=== PATIENT | female | born 1955 | race Caucasian/White ===

== ENCOUNTER 2019-01-28 08:52 | Inpatient (IN) | payer OTHER ==
[2019-01-20 12:37] VITALS: BMI 43.8
--- NOTE | 2019-01-28 08:03 | HP ---
Satellite [facility] - Chief Complaint Chief Complaint: left hip pain - Past Medical History Allergies/Adverse Reactions: Allergies Allergy/AdvReac Type Severity Reaction Status Date / Time gabapentin [From Neurontin] Allergy Severe Verified 01/20/19 12:07 cefaclor [From Ceclor] Allergy Intermediate Hives Verified 01/20/19 12:07 Penicillins Allergy Intermediate Hives Verified 01/20/19 12:07 meperidine HCl [From Demerol] AdvReac Severe HALLUCINATI Verified 01/20/19 12:06 ONS LIDOCAINE PATCH Allergy Intermediate Uncoded 06/21/15 18:01 Cardiovascular: Yes: CAD (s/p Stent in September 2012), HTN, Hyperlipdemia, [place] Pulmonary: Yes: Asthma, COPD Musculoskeletal: Yes: Chronic low back pain Endocrine: Yes: Other (Obesity) - Current Medications Current Medications: Home Medications Medication Instructions Recorded Carvedilol 12.5 mg PO BID 06/16/13 Clopidogrel Bisulfate [Plavix -] 75 mg PO DAILY 06/16/13 Losartan Potassium [Cozaar] 100 mg PO HS 06/16/13 Aspirin Coated [Ecotrin -] 81 mg PO DAILY 10/30/13 Rosuvastatin Calcium [Crestor] 20 mg PO HS 10/30/13 Cholecalciferol (Vitamin D3) 2,000 unit PO DAILY 06/21/15 [Vitamin D3] Spironolactone [Aldactone] 25 mg PO DAILY 06/21/15 Budesonide/Formeterol Fumarate 1 inh PO DAILY 01/20/19 [SYMBICORT 160/4.5mcg -] Diclofenac Sodium [Diclofenac 100 mg PO HS 01/20/19 Sodium ER] Ezetimibe 10 mg PO DAILY 01/20/19 Ferrous Sulfate [Feosol] 325 mg PO DAILY 01/20/19 Magnesium 200 mg PO DAILY 01/20/19 Tiotropium [place] [Spiriva] 1 inh PO DAILY 01/20/19 Ubidecarenone [Coq-10] 200 mg PO DAILY 01/20/19 Satellite Physical Exam - Physical Examination General Appearance: Well Nourished, Well Developed, Alert & Oriented x3 ENT: Clear Lung: Normal air movement Extremities: Other (left hip- +ttp ,decr rom ,nvi, xrays show grade 4 hip djd) Neurological: Intact, Alert, Oriented Satellite Impression/Plan - Impression/Plan Impression: left hip djd Operative Procedure: left lizzie thr Date to be Performed: 01/28/19
[2019-01-28] MEDS ORDERED: MIDAZOLAM HCL 2 MG/2 ML SINGLE DOSE VIAL ONE (09:09)
[2019-01-28] MEDS ORDERED: TRANEXAMIC ACID 1000 MG/10 ML VIAL IVPUSH ONE (09:14)
[2019-01-28] MEDS ORDERED: CELECOXIB 200 MG CAPSULE PO ONE (09:14)
[2019-01-28] MEDS ORDERED: CEFAZOLIN 3 GM in DEXTROSE 5%-WATER - 100 ML IVPB ONE (09:14)
[2019-01-28] MEDS ORDERED: ceFAZolin SODIUM 1 GM VIAL ONE ×3 (11:00→17:11)
[2019-01-28] MEDS ORDERED: ONDANSETRON 4 MG/2 ML VIAL IVPUSH PRN (11:24)
[2019-01-28] MEDS ORDERED: MAGNESIUM HYDROX 2400MG/30ML ORAL SUSPENSION 30 ML CUP PO PRN (11:24)
[2019-01-28] MEDS ORDERED: MAG HYDROX/AL HYDROX/SIMETH 30 ML UNIT-DOSE CUP PO PRN (11:24)
[2019-01-28] MEDS ORDERED: PROPOFOL 20 ML ONE (11:51)
[2019-01-28] MEDS ORDERED: TRANEXAMIC ACID 1000 MG/10 ML VIAL ONE (11:58)
--- NOTE | 2019-01-28 13:11 | OP ---
Operative Note - Note: Operative Date: 01/28/19 (joaquín) Pre-Operative Diagnosis: left hip djd Operation: left lizzie thr Post-Operative Diagnosis: Same as Pre-op Surgeon: Gabriel Campbell Asian Art Curator: Tom Mann Anesthesiologist/POKER MANAGER: Yobani Garnett Anesthesia: Spinal, Local Specimens Removed: femoral head Estimated Blood Loss (mls): 200
[2019-01-28] MEDS: LACTATED RINGERS SOLUTION 1,000 ML IV SCH (14:28)
[2019-01-28] MEDS ORDERED: DEXTROSE 5%-WATER 100 ML IVPB ONE (17:11)
[2019-01-28] MEDS: CEFAZOLIN 3 GM in DEXTROSE 5%-WATER 100 ML IVPB SCH (18:14)
[2019-01-28] MEDS: oxyCODONE HCL 5 MG TABLET PO PRN (18:15)
--- NOTE | 2019-01-28 19:03 | SPEC ---
DATE OF OPERATION: 01/28/2019 PREOPERATIVE DIAGNOSIS: Degenerative joint disease, left hip. POSTOPERATIVE DIAGNOSIS: Degenerative joint disease, left hip. PROCEDURE PERFORMED: Left total hip replacement with robotic-assisted navigation (MAKOplasty). SURGICAL ATTENDING: Gabriel Campbell MD BOOK PACKER: KIM Marquez ANESTHESIA: Regional and spinal. CLOSURE: A 48 press-fit Trident II acetabular shell, a number 3 Accolade II press-fit femoral stem, a +3-mm MDM head. Number 1 Vicryl fascia, 0 and 2-0 subcutaneous, 3-0 V-Loc for skin with skin glue, 4-0 undyed Vicryl for pin sites. ESTIMATED BLOOD LOSS: Approximately 150 mL. COMPLICATIONS: None. CONDITION: To the recovery room in stable condition. DESCRIPTION OF PROCEDURE: The patient was taken to the operating room on January 28, 2019. General and regional anesthesia was administered by the anesthesiologist. IV Kefzol and TXA were administered prophylactically prior to the case. The patient was placed in the lateral decubitus position will all prominences well-padded. The left hip area was prepped and draped in the usual sterile fashion. Using 3 small stab incisions over the iliac crest, 3 threaded pins were drilled in power fashion through the 2 tables of the crest. These pins were fastened and the navigation array for the Paulo navigation system. Next, a 12 to 15-cm curved longitudinal incision over the posterolateral aspect of the greater trochanter was incised. Hemostasis was achieved with Bovie cautery. Sharp dissection was carried down to level of the fascia. The fascia was opened the entire length of the incision, spreading the fibers of the gluteus chastity in the direction of origin. A Charnley retractor was placed in this layer. Care was taken not to impale the sciatic nerve. The short external rotators were detached off the insertion of the greater trochanter and peeled off the capsule. A posterior capsulotomy was then performed. A check point was malleted into the greater trochanter and a point on the inferior pole of the patella was obtained as well. These 2 points were used to assess the preoperative offset and limb lengths of the hip. The hip was then dislocated. The femoral neck was then osteotomized down to the appropriate level as directed by the navigation device. Anterior and posterior retractors were placed, exposing the acetabulum. A circumferential labral excision was performed. A check point was malleted into the acetabulum as well. Multiple sites inside the acetabulum and around the rim were utilized to register the acetabulum with the navigation device. An excellent registration of less than 0.5 mm was obtained. The hip was then reamed with the appropriate reamer down to the appropriate depth, with the appropriate orientation and version as assessed on our preoperative plan for this patient. The reamer was removed and the acetabulum was inspected to have good bleeding surfaces throughout. The real acetabular cup was then malleted down into place, with the holes in the appropriate position, until an excellent fixation was obtained. No screws were necessary. The navigation device ensured appropriate orientation and version, with the depth as predetermined. The appropriate liner was then clipped into place. Attention was directed to the femur. The proximal femur was prepared by use a box chisel, a canal finder and serial broaches until the broach achieved excellent rigidity in the proximal femur with the appropriate version being applied. A calcar planer was used to smooth off the calcar flush with the trial components. A trial reduction with the appropriate head was done, and the hip was reduced. The hip was taken through a range of motion from full extension with external rotation to marked flexion and was stable at 90 degrees of flexion. It was stable to marked abduction and internal rotation, with a positive hang test and negative telescoping. Limb lengths were ascertained visually as well as with the navigation device to be within the targeted range for this patient. The trial component was removed. The real component was then malleted into place. The head was cold welded to the trunnion, and the hip was reduced. Range of motion, stability and limb lengths were as described in the trial component. Then the hip was pulse antibiotic irrigated. Vancomycin powder was placed in the hip joint. The capsule was closed. The fascia was then closed as well using number 1 Vicryl interrupted suture, 0 and 2-0 subcutaneous, and 3-0 V-Loc for the skin. 4-0 undyed Vicryl was used to close the pin sites after the pins were removed. All check points were also removed. Sterile Aquacel dressing was applied. The patient was awakened from anesthesia and transferred into the supine position. Bilateral SCDs and an abduction pillow were placed. X-rays revealed excellent position of the components. The patient was transferred to the recovery room in stable condition, with no complications. Estimated blood loss was less than 100 mL. Manolo [id number]
[2019-01-28] MEDS ORDERED: traMADol HCL 50 MG TABLET PO PRN (20:50)
[2019-01-28] MEDS ORDERED: KETOROLAC TROMETHAMINE 30 MG/1 ML VIAL IVPUSH ONE (20:50)
[2019-01-28] MEDS: LOSARTAN POTASSIUM 50 MG TABLET (FP) PO SCH (21:06)
[2019-01-28] MEDS: CARVEDILOL 12.5 MG TABLET (FP) PO SCH (21:06)
[2019-01-28] MEDS: ROSUVASTATIN CA 20 MG TABLET (FP) PO SCH (21:07)
[2019-01-28] MEDS: SENNOSIDES/DOCUSATE COMBO (SENNA PLUS) TABLET (UD) PO SCH (21:07)
[2019-01-28] MEDS ORDERED: PATIENT'S OWN MEDICATION (NON-FORMULARY) (Losartan Potassium [Cozaar] 100 MG) PO SCH (22:00)
[2019-01-29] MEDS: ACETAMINOPHEN 1000 MG/100 ML VIAL (NON FORMULARY) IVPB PRN ×2 (01:23→10:27)
[2019-01-29] MEDS ORDERED: ceFAZolin SODIUM 1 GM VIAL ONE (03:10)
[2019-01-29] MEDS ORDERED: DEXTROSE 5%-WATER 100 ML IVPB ONE (03:10)
[2019-01-29] MEDS: CEFAZOLIN 3 GM in DEXTROSE 5%-WATER 100 ML IVPB SCH (03:13)
[2019-01-29] MEDS: oxyCODONE HCL 5 MG TABLET PO PRN ×6 (06:29→23:35)
[2019-01-29 07:59] LABS: HEMATOCRIT 39.4 % (32.4-45.2); MCH 31.6 pg (25.7-33.7); MCHC 33.1 g/dl (32.0-36.0); MEAN CELL VOLUME 95.3 fl (80-96); MEAN PLT VOLUME 8.6 fl (7.5-11.1); PLATELET COUNT 181 K/MM3 (134-434); RBC 4.13 M/mm3 (3.60-5.2); RDW 13.4 % (11.6-15.6)
[2019-01-29] MEDS: LACTATED RINGERS SOLUTION 1,000 ML IV SCH (08:09)
[2019-01-29] MEDS ORDERED: oxyCODONE HCL 10 MG SUSTAINED ACTING TABLET PO PRN (08:19)
--- NOTE | 2019-01-29 09:08 | PN ---
Progress Note (short form) - Note Progress Note: ANESTHESIA POSTOP 63 yo female POD#1 s/p YASMEEN, Spinal, PNB Patient sleeping in chair. Pain adequately controlled, tolerating PO VSS, Afebrile Continue current care. Encouraged IS and PT. No anesthetic complications.
[2019-01-29] MEDS ORDERED: PT OWN MED DRAWER 7, Y5N ONE (09:32)
--- NOTE | 2019-01-29 09:47 | PN ---
Progress Note (short form) - Note Progress Note: Ortho Pt seen and examined s/p left lizzie thr pod #1 Selected Entries 01/29/19 06:00 Temperature 99.0 F Pulse Rate 111 H Respiratory 20 Rate Blood Pressure 104/51 L Laboratory Tests 01/29/19 07:06 WBC 12.0 H Hgb 13.0 Hct 39.4 Plt Count 181 dressing c/d/i, calf soft, nt nvi a/p PT hip precautions dvt ppx pain control d/c home tomorrow if stable
[2019-01-29] MEDS: CARVEDILOL 12.5 MG TABLET (FP) PO SCH ×3 (09:48→22:00)
[2019-01-29] MEDS: ASPIRIN COATED 81 MG TABLET.EC PO SCH (09:48)
[2019-01-29] MEDS: SPIRONOLACTONE 25 MG TABLET (FP) PO SCH (09:49)
[2019-01-29] MEDS: MULTIVITAMINS (DAILY MVI) TABLET (FP) PO SCH (09:49)
[2019-01-29] MEDS: EZETIMIBE 10 MG TABLET (FP) PO SCH (09:49)
[2019-01-29] MEDS: FERROUS SO4 325 MG TABLET (FP) PO SCH (09:49)
[2019-01-29] MEDS: CLOPIDOGREL BISULFATE 75 MG TABLET (FP) PO SCH (09:50)
[2019-01-29] MEDS: PANTOPRAZOLE 40 MG TABLET (FP) PO SCH (09:50)
[2019-01-29] MEDS: SENNOSIDES/DOCUSATE COMBO (SENNA PLUS) TABLET (UD) PO SCH ×2 (09:56→21:19)
[2019-01-29] MEDS: BUDESONIDE/FORMETEROL FUMARATE 160/4.5 mcg INHALER IH SCH (09:56)
[2019-01-29] MEDS: TIOTROPIUM BROMIDE 2.5 MCG (SPIRIVA) RESPIMAT INHALER IH SCH (09:56)
[2019-01-29] MEDS ORDERED: PATIENT'S OWN MEDICATION (NON-FORMULARY) (Tiotropium Bromide [Spiriva] 1 INH) PO SCH (10:00)
[2019-01-29] MEDS ORDERED: oxyCODONE HCL 10 MG SUSTAINED ACTING TABLET PO SCH (10:00)
[2019-01-29] MEDS: ROSUVASTATIN CA 20 MG TABLET (FP) PO SCH (21:19)
[2019-01-29] MEDS: LOSARTAN POTASSIUM 50 MG TABLET (FP) PO SCH ×2 (21:19→22:00)
[2019-01-30] MEDS: oxyCODONE HCL 5 MG TABLET PO PRN ×2 (04:22→11:28)
[2019-01-30] MEDS: ACETAMINOPHEN 1000 MG/100 ML VIAL (NON FORMULARY) IVPB PRN (06:36)
[2019-01-30 07:52] LABS: HEMOGLOBIN 11.8 GM/dl (10.7-15.3); MCH 31.4 pg (25.7-33.7); MCHC 32.7 g/dl (32.0-36.0); MEAN CELL VOLUME 96.2 fl (80-96); MEAN PLT VOLUME 8.6 fl (7.5-11.1); PLATELET COUNT 165 K/MM3 (134-434); RBC 3.74 M/mm3 (3.60-5.2); RDW 13.4 % (11.6-15.6); WHITE BLOOD COUNT 13.7 K/mm3 (4.0-10.8)
--- NOTE | 2019-01-30 08:49 | DS ---
Physical Examination Vital Signs: Vital Signs Temperature 98.7 F 01/30/19 08:00 Pulse Rate 104 H 01/30/19 08:00 Respiratory Rate 19 01/30/19 08:00 Blood Pressure 78/34 L 01/30/19 08:00 O2 Sat by Pulse Oximetry (%) 95 01/30/19 08:00 Labs: CBC, BMP 01/30/19 07:17 Discharge Summary Problems reviewed: Yes Reason For Visit: OSTEOARTHRITIS Procedures: Principal: left thr Hospital Course: admitted for elective left lizzie thr, post-op per protocol, stable for d/c Condition: Good - Instructions Diet, Activity, Other Instructions: Post-op Instructions-Total Hip Replacement Call the office for a follow-up appointment in 1 week - [phone] Aspirin 325mg daily for 6 weeks. Pain medication was sent into your pharmacy. Apply Graduated Compression Stockings (TEDs) to both lower extremities- remove daily for hygiene ONLY Apply Sequential Compression Device (SCDs) to both Lower extremities remove for PT and hygiene ONLY Apply cold packs to affected area for 15 minutes every 2 hours. Physical Therapist will come to your home for the first 5 days. You will be set up with outpatient PT at your first post-operative visit. Patient may ambulate as tolerated-encourage self care (at least every 2-3 hours while awake) with walker or cane Maintain Aquacel (waterproof) dressing to operative wound (will be removed by surgeon at first office visit) Shower with Aquacel dressing in place-if Aquacel integrity compromised, remove and apply dry sterile dressing and notify Orthopedist. DO NOT SHOWER unless Orthopedists approves without Aquacel dressing CONTACT THE OFFICE FOR ANY CHANGE IN YOUR CONDITION (for example-fever greater than 102 degrees, excessive bleeding from operative site, purulent drainage, severe swelling or pain) GO TO THE EMERGENCY ROOM IF THERE IS A MEDICAL EMERGENCY Hip Precautions: * Keep a rolled towel under affected heel while in bed or chair (to keep knee in extension) * Dependent upon approach: * Posterior - do not cross legs; do not sit on low chairs or toilets. * If you have any questions, please do not hesitate to call the office - . Referrals: Gabriel Campbell MD [Staff Physician] - Disposition: VNS/HOME HEALTH CARE - Home Medications Comprehensive Discharge Medication List: Ambulatory Orders Carvedilol 12.5 mg PO BID 06/16/13 Clopidogrel Bisulfate [Plavix -] 75 mg PO DAILY 06/16/13 Losartan Potassium [Cozaar] 100 mg PO HS 06/16/13 Aspirin Coated [Ecotrin -] 81 mg PO DAILY 10/30/13 Rosuvastatin Calcium [Crestor] 20 mg PO HS 10/30/13 Cholecalciferol (Vitamin D3) [Vitamin D3] 2,000 unit PO DAILY 06/21/15 Spironolactone [Aldactone] 25 mg PO DAILY 06/21/15 Budesonide/Formeterol Fumarate [SYMBICORT 160/4.5mcg -] 1 inh PO DAILY 01/20/19 Diclofenac Sodium [Diclofenac Sodium ER] 100 mg PO HS 01/20/19 Ezetimibe 10 mg PO DAILY 01/20/19 Ferrous Sulfate [Feosol] 325 mg PO DAILY 01/20/19 Magnesium 200 mg PO DAILY 01/20/19 Tiotropium [place] [Spiriva] 1 inh PO DAILY 01/20/19 Ubidecarenone [Coq-10] 200 mg PO DAILY 01/20/19 Oxycodone HCl/Acetaminophen [Percocet 5-325 mg Tablet -] 1 - 2 tab PO Q6H #50 tab MDD 8 01/28/19 Tramadol HCl [Tramadol HCl ER] 100 mg PO DAILY 01/28/19
--- NOTE | 2019-01-30 08:49 | PN ---
Progress Note (short form) - Note Progress Note: Ortho Pt seen and examined s/p left lizzie thr pod #2. Pt given bolus for hypotension. Pt states that she has had low bp for her whole life. Pre-op BP also hypotensive. Denies dizziness, lethargy, CP, SOB. Selected Entries 01/30/19 08:00 Temperature 98.7 F Pulse Rate 104 H Respiratory 19 Rate Blood Pressure 78/34 L Laboratory Tests 01/30/19 07:17 WBC 13.7 H Hgb 11.8 Hct 36.0 Plt Count 165 dressing c/d/i, calf soft, nt nvi a/p recheck BP PT hip precautions dvt ppx pain control d/c home today if BP stabilized f/u in 1 week
[2019-01-30] MEDS: SPIRONOLACTONE 25 MG TABLET (FP) PO SCH (10:15)
[2019-01-30] MEDS: CARVEDILOL 12.5 MG TABLET (FP) PO SCH (10:15)
[2019-01-30] MEDS: PANTOPRAZOLE 40 MG TABLET (FP) PO SCH (10:16)
[2019-01-30] MEDS: CLOPIDOGREL BISULFATE 75 MG TABLET (FP) PO SCH (10:16)
[2019-01-30] MEDS: FERROUS SO4 325 MG TABLET (FP) PO SCH (10:16)
[2019-01-30] MEDS: ASPIRIN COATED 81 MG TABLET.EC PO SCH (10:16)
[2019-01-30] MEDS: SENNOSIDES/DOCUSATE COMBO (SENNA PLUS) TABLET (UD) PO SCH (10:16)
[2019-01-30] MEDS: EZETIMIBE 10 MG TABLET (FP) PO SCH (10:17)
[2019-01-30] MEDS: MULTIVITAMINS (DAILY MVI) TABLET (FP) PO SCH (10:17)
[2019-01-30] MEDS: TIOTROPIUM BROMIDE 2.5 MCG (SPIRIVA) RESPIMAT INHALER IH SCH (10:17)
[2019-01-30] MEDS: BUDESONIDE/FORMETEROL FUMARATE 160/4.5 mcg INHALER IH SCH (10:17)
[2019-01-30 14:28] VITALS: BP 89/49; PULSE 102; TEMP 98.2
--- NOTE | 2019-02-03 13:34 | PATH ---
Surgical Pathology Report Patient Name: JAYE HINES Med. Rec. #: [id number] /Age/Gender: 1955 (Age: 63) / F Account: [id number] Location: [facility] Taken: 01/28/2019 Received: 01/28/2019 Reported: 02/03/2019 Physicians: Gabriel Campbell M.D. Specimen(s) Received LEFT FEMORAL HEAD Clinical History Osteoarthritis left hip Final Diagnosis FEMORAL HEAD, LEFT, TOTAL HIP REPLACEMENT: DEGENERATIVE JOINT DISEASE. Electronically Signed Jaquelin Hickman M.D. Gross Description Received in formalin, labeled "left femoral head," is a 4.0 x 4.0 x 3.7 cm. femoral head with a 1.1 cm length portion of femoral neck attached. The margin of resection is smooth. There is a 3.5 cm greatest dimension area of eburnation present. The remaining articular surface is moore-yellow and diffusely granular. The underlying trabecular bone is yellow and hard. A quality assurance representative section is submitted in one cassette, following decalcification. 01/30/2019 [facility]
== END 2019-01-30 13:58 | disposition home health service (06) | DRG 470 ==
LOC: FM/S 08:52
PROVIDERS: ADMIT Orthopaedic Surgery; ATTEND Orthopaedic Surgery
PROC: 8E0W0CZ Robotic Assisted Procedure of Trunk Region, Open Approach (ICD-10-PCS; 2019-01-28)
PROC: 0SRB0JA Replacement of Left Hip Joint with Synthetic Substitute, Uncemented, Open Approach (ICD-10-PCS; principal; 2019-01-28 12:05)
DX: M16.12 Unilateral primary osteoarthritis, left hip (principal); Z68.41 Body mass index [BMI] 40.0-44.9, adult; I95.9 Hypotension, unspecified; I10 Essential (primary) hypertension; E78.5 Hyperlipidemia, unspecified; I25.10 Atherosclerotic heart disease of native coronary artery without angina pectoris; Z98.61 Coronary angioplasty status; E66.9 Obesity, unspecified
CPT/HCPCS: 36415; 73502-TC-LT-FY; 85027; 88305-TC; 88311-TC; 94760; 97116-GP; 97163-GP; J0131

== ENCOUNTER 2020-09-02 08:09 | Inpatient (IN) | payer OTHER ==
[2020-09-02 08:20] VITALS: BMI 56.6
[2020-09-02 09:37] LABS: BASO % 1.2 % (0-2.0); EOS % 0.8 % (0-4.5); HEMATOCRIT 43.1 % (32.4-45.2); HEMOGLOBIN 13.9 GM/dL (10.7-15.3); LYMPH % 14.1 % (8-40); MCH 31.6 pg (25.7-33.7); MCHC 32.3 g/dl (32.0-36.0); MEAN CELL VOLUME 97.7 fl (80-96); MEAN PLT VOLUME 8.4 fl (7.5-11.1); MONO % 6.4 % (3.8-10.2); NEUT % 77.5 % (42.8-82.8); PLATELET COUNT 215 10^3/uL (134-434); RBC 4.41 M/mm3 (3.60-5.2); RDW 14.7 % (11.6-15.6); WHITE BLOOD COUNT 9.5 K/mm3 (4.0-10.0)
[2020-09-02 09:38] LABS: EPI CELLS >36 /uL (0-25.1); HYALINE CASTS 6 /uL (0-3.1); PH,URINE 5.5 (5.0-8.0); URINE APPEARANCE CLOUDY; URINE BACTERIA 1693 /uL (0-1359); URINE BILIRUBIN NEGATIVE (NEGATIVE); URINE COLOR YELLOW; URINE GLUCOSE (UA) NEGATIVE (NEGATIVE); URINE KETONE NEGATIVE (NEGATIVE); URINE LEUK ESTERASE NEGATIVE (NEGATIVE); URINE NITRITE NEGATIVE (NEGATIVE); URINE PROTEIN 1+ (NEGATIVE); URINE UROBILINOGEN 0.2 mg/dL (0.2-1.0); URINE WBC 27 /uL (0-25.8)
[2020-09-02 09:52] LABS: URINE RBC 173.8 /uL (0-23.9)
[2020-09-02 09:58] LABS: CHLORIDE 94 mmol/L (98-107); SODIUM 140 mmol/L (136-145)
[2020-09-02 10:01] LABS: ALBUMIN 3.4 g/dl (3.4-5.0); BLOOD UREA NITROGEN 15.7 mg/dL (7-18); GLUCOSE,RANDOM 114 mg/dL (74-106)
[2020-09-02 10:04] LABS: SGOT/AST 74 U/L (15-37); SGPT/ALT 57 U/L (13-61)
[2020-09-02 10:05] LABS: CREATININE 0.5 mg/dL (0.55-1.3)
[2020-09-02 10:06] LABS: BILIRUBIN,TOTAL 0.5 mg/dL (0.2-1); TOT PROT 7.3 g/dl (6.4-8.2)
[2020-09-02 10:07] LABS: ALK PHOS 78 U/L (45-117); ANION GAP 1 MMOL/L (8-16); CO2 > 45 mmol/L (21-32)
[2020-09-02 11:35] LABS: CHLORIDE 95 mmol/L (98-107); SODIUM 142 mmol/L (136-145)
[2020-09-02 11:37] LABS: CALCIUM 9.7 mg/dL (8.5-10.1); GLUCOSE,RANDOM 121 mg/dL (74-106)
[2020-09-02 11:38] LABS: BLOOD UREA NITROGEN 16.4 mg/dL (7-18)
[2020-09-02 11:41] LABS: CREATININE 0.4 mg/dL (0.55-1.3)
[2020-09-02 11:43] LABS: ANION GAP 2 MMOL/L (8-16); CO2 > 45 mmol/L (21-32)
[2020-09-02 15:24] LABS: ARTERIAL BLD GAS O2 SATURATION 94.6 mmHg (95-98); ARTERIAL BLOOD GAS BASE EXCESS 11.7 mmol/L (-2-2); ARTERIAL BLOOD GAS PO2 84.9 mmHg (80-100); ARTERIAL BLOOD GAS pH 7.286 (7.350-7.450)
[2020-09-02 15:35] LABS: ALLENS TEST POSITIVE
[2020-09-02] MEDS: CARVEDILOL 6.25 MG TABLET (FP) PO SCH (21:24)
[2020-09-02] MEDS: ROSUVASTATIN CA 20 MG TABLET (FP) PO SCH (21:24)
[2020-09-03] MEDS: FUROSEMIDE 40 MG TABLET (FP) PO SCH (09:59)
[2020-09-03] MEDS: ASPIRIN COATED 81 MG TABLET.EC PO SCH (09:59)
[2020-09-03] MEDS: EZETIMIBE 10 MG TABLET (FP) PO SCH (09:59)
[2020-09-03] MEDS: LOSARTAN POTASSIUM 25 MG TABLET PO SCH (09:59)
[2020-09-03] MEDS: CARVEDILOL 6.25 MG TABLET (FP) PO SCH ×2 (09:59→21:29)
[2020-09-03] MEDS: SPIRONOLACTONE 25 MG TABLET PO SCH (10:00)
[2020-09-03] MEDS: BUDESONIDE/FORMETEROL FUMARATE 160/4.5 mcg INHALER IH SCH ×2 (12:16→21:29)
[2020-09-03] MEDS: methylPREDNISolone NA SUCC 40 MG/1 ML VIAL IVPUSH SCH ×2 (12:16→17:16)
[2020-09-03] MEDS: ENOXAPARIN NA (PORCINE) 40 MG/0.4 ML DISP.SYRIN SQ SCH (13:43)
[2020-09-03] MEDS: ROSUVASTATIN CA 20 MG TABLET (FP) PO SCH (21:29)
[2020-09-04] MEDS: methylPREDNISolone NA SUCC 40 MG/1 ML VIAL IVPUSH SCH ×3 (01:00→17:49)
[2020-09-04] MEDS: ENOXAPARIN NA (PORCINE) 40 MG/0.4 ML DISP.SYRIN SQ SCH (10:09)
[2020-09-04] MEDS: FUROSEMIDE 40 MG TABLET (FP) PO SCH (10:09)
[2020-09-04] MEDS: BUDESONIDE/FORMETEROL FUMARATE 160/4.5 mcg INHALER IH SCH ×2 (10:10→21:24)
[2020-09-04] MEDS: PANTOPRAZOLE 40 MG TABLET PO SCH (10:10)
[2020-09-04] MEDS: EZETIMIBE 10 MG TABLET (FP) PO SCH (10:10)
[2020-09-04] MEDS: ASPIRIN COATED 81 MG TABLET.EC PO SCH (10:10)
[2020-09-04] MEDS: LOSARTAN POTASSIUM 25 MG TABLET PO SCH ×2 (10:11→10:13)
[2020-09-04] MEDS: SPIRONOLACTONE 25 MG TABLET PO SCH ×2 (10:11→10:13)
[2020-09-04] MEDS: CARVEDILOL 6.25 MG TABLET (FP) PO SCH ×3 (10:11→21:35)
[2020-09-04] MEDS: ROSUVASTATIN CA 20 MG TABLET (FP) PO SCH (21:24)
[2020-09-05] MEDS: methylPREDNISolone NA SUCC 40 MG/1 ML VIAL IVPUSH SCH ×3 (01:21→17:19)
[2020-09-05] MEDS: PANTOPRAZOLE 40 MG TABLET PO SCH (09:27)
[2020-09-05] MEDS: LOSARTAN POTASSIUM 25 MG TABLET PO SCH (09:27)
[2020-09-05] MEDS: CARVEDILOL 6.25 MG TABLET (FP) PO SCH ×2 (09:27→22:05)
[2020-09-05] MEDS: EZETIMIBE 10 MG TABLET (FP) PO SCH (09:27)
[2020-09-05] MEDS: ASPIRIN COATED 81 MG TABLET.EC PO SCH (09:27)
[2020-09-05] MEDS: BUDESONIDE/FORMETEROL FUMARATE 160/4.5 mcg INHALER IH SCH ×2 (09:28→22:05)
[2020-09-05] MEDS: ENOXAPARIN NA (PORCINE) 40 MG/0.4 ML DISP.SYRIN SQ SCH (09:28)
[2020-09-05] MEDS: FUROSEMIDE 40 MG TABLET (FP) PO SCH (09:28)
[2020-09-05] MEDS: SPIRONOLACTONE 25 MG TABLET PO SCH (09:28)
[2020-09-05] MEDS: ROSUVASTATIN CA 20 MG TABLET (FP) PO SCH (22:05)
[2020-09-06] MEDS: methylPREDNISolone NA SUCC 40 MG/1 ML VIAL IVPUSH SCH ×3 (01:39→18:11)
[2020-09-06] MEDS: SPIRONOLACTONE 25 MG TABLET PO SCH (09:44)
[2020-09-06] MEDS: ENOXAPARIN NA (PORCINE) 40 MG/0.4 ML DISP.SYRIN SQ SCH (09:44)
[2020-09-06] MEDS: EZETIMIBE 10 MG TABLET (FP) PO SCH (09:44)
[2020-09-06] MEDS: ASPIRIN COATED 81 MG TABLET.EC PO SCH (09:44)
[2020-09-06] MEDS: FUROSEMIDE 40 MG TABLET (FP) PO SCH (09:44)
[2020-09-06] MEDS: PANTOPRAZOLE 40 MG TABLET PO SCH (09:44)
[2020-09-06] MEDS: LOSARTAN POTASSIUM 25 MG TABLET PO SCH (09:44)
[2020-09-06] MEDS: CARVEDILOL 6.25 MG TABLET (FP) PO SCH ×2 (09:44→21:07)
[2020-09-06] MEDS: BUDESONIDE/FORMETEROL FUMARATE 160/4.5 mcg INHALER IH SCH ×2 (10:31→21:07)
[2020-09-06 11:28] LABS: BASO % 0.6 % (0-2.0); HEMOGLOBIN 13.7 GM/dL (10.7-15.3); LYMPH % 8.1 % (8-40); MCH 31.3 pg (25.7-33.7); MEAN CELL VOLUME 97.8 fl (80-96); MEAN PLT VOLUME 8.5 fl (7.5-11.1); NEUT % 86.3 % (42.8-82.8); PLATELET COUNT 229 10^3/uL (134-434); RBC 4.39 M/mm3 (3.60-5.2); RDW 14.3 % (11.6-15.6); WHITE BLOOD COUNT 11.2 K/mm3 (4.0-10.0)
[2020-09-06 11:47] LABS: BLOOD UREA NITROGEN 28.5 mg/dL (7-18); CALCIUM 8.8 mg/dL (8.5-10.1)
[2020-09-06 11:48] LABS: ALBUMIN 3.2 g/dl (3.4-5.0)
[2020-09-06 11:50] LABS: CREATININE 0.7 mg/dL (0.55-1.3)
[2020-09-06 11:52] LABS: BILIRUBIN,TOTAL 0.4 mg/dL (0.2-1); TOT PROT 6.6 g/dl (6.4-8.2)
[2020-09-06 11:54] LABS: ANISOCYTOSIS 0; HELMET CELLS 0; HOWELL-JOLLY BODIES 0; MACROCYTOSIS 0; OVALOCYTE 0; PLATELET ESTIMATE NORMAL; ROULEAU 0; SICKELED CELLS 0; TARGET CELLS 0; TEAR DROP CELLS 0; TOXIC GRANULATION 0
[2020-09-06] MEDS: ROSUVASTATIN CA 20 MG TABLET (FP) PO SCH (21:07)
[2020-09-07] MEDS: methylPREDNISolone NA SUCC 40 MG/1 ML VIAL IVPUSH SCH ×3 (01:11→19:00)
[2020-09-07] MEDS: PANTOPRAZOLE 40 MG TABLET PO SCH (09:41)
[2020-09-07] MEDS: ENOXAPARIN NA (PORCINE) 40 MG/0.4 ML DISP.SYRIN SQ SCH (09:42)
[2020-09-07] MEDS: ASPIRIN COATED 81 MG TABLET.EC PO SCH (09:42)
[2020-09-07] MEDS: EZETIMIBE 10 MG TABLET (FP) PO SCH (09:42)
[2020-09-07] MEDS: BUDESONIDE/FORMETEROL FUMARATE 160/4.5 mcg INHALER IH SCH ×2 (09:44→21:21)
[2020-09-07] MEDS: LOSARTAN POTASSIUM 25 MG TABLET PO SCH (09:59)
[2020-09-07] MEDS: SPIRONOLACTONE 25 MG TABLET PO SCH (09:59)
[2020-09-07] MEDS: CARVEDILOL 6.25 MG TABLET (FP) PO SCH ×2 (09:59→21:20)
[2020-09-07] MEDS: FUROSEMIDE 40 MG TABLET (FP) PO SCH (09:59)
[2020-09-07] MEDS: TIOTROPIUM BROMIDE 2.5 MCG (SPIRIVA) RESPIMAT INHALER IH SCH (13:51)
[2020-09-07] MEDS: ROSUVASTATIN CA 20 MG TABLET (FP) PO SCH (21:20)
[2020-09-08] MEDS: methylPREDNISolone NA SUCC 40 MG/1 ML VIAL IVPUSH SCH ×3 (01:25→21:48)
[2020-09-08] MEDS: clonazePAM 0.25 MG ODT TABLETS SL PRN (01:26)
[2020-09-08 07:27] LABS: BASO % 0.5 % (0-2.0); HEMATOCRIT 42.2 % (32.4-45.2); HEMOGLOBIN 13.7 GM/dL (10.7-15.3); LYMPH % 9.2 % (8-40); MCH 31.2 pg (25.7-33.7); MCHC 32.6 g/dl (32.0-36.0); MEAN PLT VOLUME 8.2 fl (7.5-11.1); NEUT % 86.3 % (42.8-82.8); PLATELET COUNT 184 10^3/uL (134-434); RBC 4.39 M/mm3 (3.60-5.2); WHITE BLOOD COUNT 11.1 K/mm3 (4.0-10.0)
[2020-09-08 08:06] LABS: ALBUMIN 3.2 g/dl (3.4-5.0)
[2020-09-08 08:07] LABS: BLOOD UREA NITROGEN 30.8 mg/dL (7-18)
[2020-09-08 08:09] LABS: CREATININE 0.6 mg/dL (0.55-1.3)
[2020-09-08 08:11] LABS: TOT PROT 6.1 g/dl (6.4-8.2)
[2020-09-08 08:14] LABS: BILIRUBIN,TOTAL 0.5 mg/dL (0.2-1)
[2020-09-08 09:42] LABS: ANISOCYTOSIS 0; HELMET CELLS 0; HOWELL-JOLLY BODIES 0; MACROCYTOSIS 0; OVALOCYTE 0; PLATELET ESTIMATE NORMAL; ROULEAU 0; SICKELED CELLS 0; TARGET CELLS 0; TEAR DROP CELLS 0; TOXIC GRANULATION 0
[2020-09-08] MEDS: ENOXAPARIN NA (PORCINE) 40 MG/0.4 ML DISP.SYRIN SQ SCH (10:33)
[2020-09-08] MEDS: BUDESONIDE/FORMETEROL FUMARATE 160/4.5 mcg INHALER IH SCH ×2 (10:34→21:48)
[2020-09-08] MEDS: PANTOPRAZOLE 40 MG TABLET PO SCH (10:34)
[2020-09-08] MEDS: EZETIMIBE 10 MG TABLET (FP) PO SCH (10:34)
[2020-09-08] MEDS: SPIRONOLACTONE 25 MG TABLET PO SCH (10:34)
[2020-09-08] MEDS: CARVEDILOL 6.25 MG TABLET (FP) PO SCH ×2 (10:34→21:43)
[2020-09-08] MEDS: FUROSEMIDE 40 MG TABLET (FP) PO SCH (10:34)
[2020-09-08] MEDS: ASPIRIN COATED 81 MG TABLET.EC PO SCH (10:34)
[2020-09-08] MEDS: LOSARTAN POTASSIUM 25 MG TABLET PO SCH (10:34)
[2020-09-08] MEDS: TIOTROPIUM BROMIDE 2.5 MCG (SPIRIVA) RESPIMAT INHALER IH SCH (10:34)
[2020-09-08] MEDS ORDERED: methylPREDNISolone NA SUCC 40 MG/1 ML VIAL IVPUSH SCH (12:30)
[2020-09-08] MEDS: ROSUVASTATIN CA 20 MG TABLET (FP) PO SCH (21:48)
[2020-09-09] MEDS: clonazePAM 0.25 MG ODT TABLETS SL PRN (01:11)
[2020-09-09] MEDS: SPIRONOLACTONE 25 MG TABLET PO SCH (10:32)
[2020-09-09] MEDS: EZETIMIBE 10 MG TABLET (FP) PO SCH (10:32)
[2020-09-09] MEDS: ASPIRIN COATED 81 MG TABLET.EC PO SCH (10:32)
[2020-09-09] MEDS: PANTOPRAZOLE 40 MG TABLET PO SCH (10:32)
[2020-09-09] MEDS: methylPREDNISolone NA SUCC 40 MG/1 ML VIAL IVPUSH SCH ×2 (10:32→21:52)
[2020-09-09] MEDS: ENOXAPARIN NA (PORCINE) 40 MG/0.4 ML DISP.SYRIN SQ SCH (10:33)
[2020-09-09] MEDS: CARVEDILOL 6.25 MG TABLET (FP) PO SCH ×2 (10:33→21:52)
[2020-09-09] MEDS: LOSARTAN POTASSIUM 25 MG TABLET PO SCH (10:33)
[2020-09-09] MEDS: FUROSEMIDE 40 MG TABLET (FP) PO SCH (10:33)
[2020-09-09] MEDS: TIOTROPIUM BROMIDE 2.5 MCG (SPIRIVA) RESPIMAT INHALER IH SCH (10:34)
[2020-09-09] MEDS: BUDESONIDE/FORMETEROL FUMARATE 160/4.5 mcg INHALER IH SCH ×2 (10:34→21:53)
[2020-09-09 12:09] LABS: ALLENS TEST POSITIVE; ARTERIAL BLD GAS O2 SATURATION 93.3 mmHg (95-98); ARTERIAL BLOOD GAS BASE EXCESS 10.9 mmol/L (-2-2); ARTERIAL BLOOD GAS PO2 66.3 mmHg (80-100); ARTERIAL BLOOD GAS pH 7.435 (7.350-7.450)
[2020-09-09] MEDS: ROSUVASTATIN CA 20 MG TABLET (FP) PO SCH (21:52)
[2020-09-10] MEDS: CARVEDILOL 6.25 MG TABLET (FP) PO SCH ×2 (09:57→21:11)
[2020-09-10] MEDS: EZETIMIBE 10 MG TABLET (FP) PO SCH (09:57)
[2020-09-10] MEDS: PANTOPRAZOLE 40 MG TABLET PO SCH (09:57)
[2020-09-10] MEDS: ENOXAPARIN NA (PORCINE) 40 MG/0.4 ML DISP.SYRIN SQ SCH (09:57)
[2020-09-10] MEDS: predniSONE 20 MG TABLET (UD) PO SCH (09:57)
[2020-09-10] MEDS: SPIRONOLACTONE 25 MG TABLET PO SCH (09:57)
[2020-09-10] MEDS: FUROSEMIDE 40 MG TABLET (FP) PO SCH (09:58)
[2020-09-10] MEDS: BUDESONIDE/FORMETEROL FUMARATE 160/4.5 mcg INHALER IH SCH ×2 (09:58→21:11)
[2020-09-10] MEDS: ASPIRIN COATED 81 MG TABLET.EC PO SCH (09:58)
[2020-09-10] MEDS: TIOTROPIUM BROMIDE 2.5 MCG (SPIRIVA) RESPIMAT INHALER IH SCH (09:58)
[2020-09-10] MEDS: LOSARTAN POTASSIUM 25 MG TABLET PO SCH (09:58)
[2020-09-10] MEDS: ROSUVASTATIN CA 20 MG TABLET (FP) PO SCH (21:11)
[2020-09-11] MEDS: clonazePAM 0.25 MG ODT TABLETS SL PRN ×2 (00:21→23:23)
[2020-09-11] MEDS: predniSONE 20 MG TABLET (UD) PO SCH (10:36)
[2020-09-11] MEDS: FUROSEMIDE 40 MG TABLET (FP) PO SCH (10:36)
[2020-09-11] MEDS: LOSARTAN POTASSIUM 25 MG TABLET PO SCH (10:36)
[2020-09-11] MEDS: EZETIMIBE 10 MG TABLET (FP) PO SCH (10:36)
[2020-09-11] MEDS: BUDESONIDE/FORMETEROL FUMARATE 160/4.5 mcg INHALER IH SCH ×2 (10:36→21:17)
[2020-09-11] MEDS: ASPIRIN COATED 81 MG TABLET.EC PO SCH (10:36)
[2020-09-11] MEDS: SPIRONOLACTONE 25 MG TABLET PO SCH (10:36)
[2020-09-11] MEDS: TIOTROPIUM BROMIDE 2.5 MCG (SPIRIVA) RESPIMAT INHALER IH SCH (10:36)
[2020-09-11] MEDS: CARVEDILOL 6.25 MG TABLET (FP) PO SCH ×2 (10:36→21:17)
[2020-09-11] MEDS: PANTOPRAZOLE 40 MG TABLET PO SCH (10:36)
[2020-09-11] MEDS: ROSUVASTATIN CA 20 MG TABLET (FP) PO SCH (21:17)
[2020-09-12] MEDS: TIOTROPIUM BROMIDE 2.5 MCG (SPIRIVA) RESPIMAT INHALER IH SCH (10:08)
[2020-09-12] MEDS: ASPIRIN COATED 81 MG TABLET.EC PO SCH (10:08)
[2020-09-12] MEDS: FUROSEMIDE 40 MG TABLET (FP) PO SCH (10:08)
[2020-09-12] MEDS: BUDESONIDE/FORMETEROL FUMARATE 160/4.5 mcg INHALER IH SCH ×2 (10:08→21:38)
[2020-09-12] MEDS: PANTOPRAZOLE 40 MG TABLET PO SCH (10:08)
[2020-09-12] MEDS: SPIRONOLACTONE 25 MG TABLET PO SCH (10:08)
[2020-09-12] MEDS: EZETIMIBE 10 MG TABLET (FP) PO SCH (10:08)
[2020-09-12] MEDS: predniSONE 20 MG TABLET (UD) PO SCH (10:08)
[2020-09-12] MEDS: CARVEDILOL 6.25 MG TABLET (FP) PO SCH ×2 (10:08→21:19)
[2020-09-12] MEDS: LOSARTAN POTASSIUM 25 MG TABLET PO SCH (10:08)
[2020-09-12] MEDS: ROSUVASTATIN CA 20 MG TABLET (FP) PO SCH (21:14)
[2020-09-13] MEDS: clonazePAM 0.25 MG ODT TABLETS SL PRN (00:40)
[2020-09-13] MEDS: ASPIRIN COATED 81 MG TABLET.EC PO SCH (09:18)
[2020-09-13] MEDS: EZETIMIBE 10 MG TABLET (FP) PO SCH (09:18)
[2020-09-13] MEDS: predniSONE 20 MG TABLET (UD) PO SCH (09:19)
[2020-09-13] MEDS: PANTOPRAZOLE 40 MG TABLET PO SCH (09:19)
[2020-09-13] MEDS: BUDESONIDE/FORMETEROL FUMARATE 160/4.5 mcg INHALER IH SCH ×2 (09:19→21:27)
[2020-09-13] MEDS: FUROSEMIDE 40 MG TABLET (FP) PO SCH (09:19)
[2020-09-13] MEDS: SPIRONOLACTONE 25 MG TABLET PO SCH (09:19)
[2020-09-13] MEDS: TIOTROPIUM BROMIDE 2.5 MCG (SPIRIVA) RESPIMAT INHALER IH SCH (09:21)
[2020-09-13] MEDS: CARVEDILOL 6.25 MG TABLET (FP) PO SCH ×2 (09:22→21:27)
[2020-09-13] MEDS: LOSARTAN POTASSIUM 25 MG TABLET PO SCH (14:01)
[2020-09-13] MEDS: ROSUVASTATIN CA 20 MG TABLET (FP) PO SCH (21:27)
[2020-09-14] MEDS: clonazePAM 0.25 MG ODT TABLETS SL PRN (02:47)
[2020-09-14] MEDS: predniSONE 20 MG TABLET (UD) PO SCH (09:13)
[2020-09-14] MEDS: FUROSEMIDE 40 MG TABLET (FP) PO SCH (09:13)
[2020-09-14] MEDS: ASPIRIN COATED 81 MG TABLET.EC PO SCH (09:13)
[2020-09-14] MEDS: PANTOPRAZOLE 40 MG TABLET PO SCH (09:13)
[2020-09-14] MEDS: EZETIMIBE 10 MG TABLET (FP) PO SCH (09:13)
[2020-09-14] MEDS: CARVEDILOL 6.25 MG TABLET (FP) PO SCH ×2 (09:13→21:26)
[2020-09-14] MEDS: TIOTROPIUM BROMIDE 2.5 MCG (SPIRIVA) RESPIMAT INHALER IH SCH (09:16)
[2020-09-14] MEDS: BUDESONIDE/FORMETEROL FUMARATE 160/4.5 mcg INHALER IH SCH ×2 (09:16→21:26)
[2020-09-14] MEDS: ENOXAPARIN NA (PORCINE) 40 MG/0.4 ML DISP.SYRIN SQ SCH (13:40)
[2020-09-14] MEDS: ROSUVASTATIN CA 20 MG TABLET (FP) PO SCH (21:26)
[2020-09-15] MEDS: clonazePAM 0.25 MG ODT TABLETS SL PRN (02:16)
[2020-09-15] MEDS: EZETIMIBE 10 MG TABLET (FP) PO SCH (09:18)
[2020-09-15] MEDS: CARVEDILOL 6.25 MG TABLET (FP) PO SCH (09:18)
[2020-09-15] MEDS: ENOXAPARIN NA (PORCINE) 40 MG/0.4 ML DISP.SYRIN SQ SCH (09:18)
[2020-09-15] MEDS: predniSONE 20 MG TABLET (UD) PO SCH (09:18)
[2020-09-15] MEDS: FUROSEMIDE 40 MG TABLET (FP) PO SCH (09:18)
[2020-09-15] MEDS: ASPIRIN COATED 81 MG TABLET.EC PO SCH (09:18)
[2020-09-15] MEDS: PANTOPRAZOLE 40 MG TABLET PO SCH (09:18)
[2020-09-15] MEDS: BUDESONIDE/FORMETEROL FUMARATE 160/4.5 mcg INHALER IH SCH (09:19)
[2020-09-15] MEDS: TIOTROPIUM BROMIDE 2.5 MCG (SPIRIVA) RESPIMAT INHALER IH SCH (09:19)
[2020-09-15 13:32] VITALS: BP 115/64; TEMP 98.2
[2020-09-15 16:14] VITALS: PULSE 85
== END 2020-09-15 19:32 | DRG 189 ==
LOC: JER 08:09 → JERBED 08:49 → J4S 20:02
PROVIDERS: ADMIT Internal Medicine; ATTEND Internal Medicine
DX: J96.22 Acute and chronic respiratory failure with hypercapnia (principal); J44.1 Chronic obstructive pulmonary disease with (acute) exacerbation; Z68.43 Body mass index [BMI] 50.0-59.9, adult; J96.21 Acute and chronic respiratory failure with hypoxia; J45.909 Unspecified asthma, uncomplicated; I25.10 Atherosclerotic heart disease of native coronary artery without angina pectoris; I10 Essential (primary) hypertension; I25.5 Ischemic cardiomyopathy; E78.5 Hyperlipidemia, unspecified; E66.01 Morbid (severe) obesity due to excess calories; G47.33 Obstructive sleep apnea (adult) (pediatric); R55 Syncope and collapse; M54.5 Low back pain; R26.2 Difficulty in walking, not elsewhere classified; I25.2 Old myocardial infarction; Z95.5 Presence of coronary angioplasty implant and graft; W18.39XA Other fall on same level, initial encounter; Y92.098 Other place in other non-institutional residence as the place of occurrence of the external cause
CPT/HCPCS: 36415; 36600; 70450-TC; 71045-TC-FY; 71250-TC; 72125-TC; 72170-TC-FY; 80048; 80053; 81003; 82550; 82803; 84484; 85025; 87081; 87086; 93005; 93010; 94010; 94660; 97110-GP; 97116-GP; 99285-25; C9803; U0003; U0005

== ENCOUNTER 2020-12-27 18:02 | Inpatient (IN) | payer OTHER ==
[2020-12-27] MEDS ORDERED: SODIUM CHLORIDE 500 ML IV STA (19:02)
[2020-12-27 21:14] LABS: EPI CELLS 15 /uL (0-25.1); HYALINE CASTS 8 /uL (0-3.1); PH,URINE 5.5 (5.0-8.0); URINE APPEARANCE CLEAR; URINE BACTERIA 42 /uL (0-1359); URINE BILIRUBIN NEGATIVE (NEGATIVE); URINE COLOR YELLOW; URINE GLUCOSE (UA) NEGATIVE (NEGATIVE); URINE KETONE NEGATIVE (NEGATIVE); URINE LEUK ESTERASE NEGATIVE (NEGATIVE); URINE NITRITE NEGATIVE (NEGATIVE); URINE PROTEIN 1+ (NEGATIVE); URINE RBC 6 /uL (0-23.9); URINE WBC 13 /uL (0-25.8)
[2020-12-27 21:27] LABS: HEMATOCRIT 35.6 % (32.4-45.2); HEMOGLOBIN 11.4 GM/dL (10.7-15.3); MCH 31.7 pg (25.7-33.7); MCHC 32.1 g/dl (32.0-36.0); MEAN CELL VOLUME 98.7 fl (80-96); MEAN PLT VOLUME 7.3 fl (7.5-11.1); PLATELET COUNT 204 10^3/uL (134-434); RBC 3.61 M/mm3 (3.60-5.2); RDW 14.3 % (11.6-15.6); WHITE BLOOD COUNT 10.1 K/mm3 (4.0-10.0)
[2020-12-27 21:32] LABS: CHLORIDE 99 mmol/L (98-107); SODIUM 143 mmol/L (136-145)
[2020-12-27 21:33] LABS: CALCIUM 8.3 mg/dL (8.5-10.1)
[2020-12-27 21:34] LABS: ALBUMIN 2.9 g/dl (3.4-5.0); ANION GAP 5 MMOL/L (8-16); BLOOD UREA NITROGEN 15.6 mg/dL (7-18); CO2 40 mmol/L (21-32)
[2020-12-27 21:37] LABS: CREATININE 0.5 mg/dL (0.55-1.3); SGOT/AST 29 U/L (15-37); SGPT/ALT 32 U/L (13-61)
[2020-12-27 21:39] LABS: BILIRUBIN,TOTAL 0.2 mg/dL (0.2-1); TOT PROT 6.5 g/dl (6.4-8.2)
[2020-12-27 21:40] LABS: ALK PHOS 81 U/L (45-117)
[2020-12-27 21:41] LABS: GLUCOSE,RANDOM 100 mg/dL (74-106)
[2020-12-27 21:45] LABS: ANISOCYTOSIS 1+; MACROCYTOSIS 1+; PLATELET ESTIMATE NORMAL
[2020-12-27] MEDS ORDERED: ALBUTEROL SO4 2.5/IPRATROPIUM 0.5 INH SOL 3 ML VIAL.NEB. NEB ONE ×2 (22:05→22:44)
[2020-12-27] MEDS ORDERED: methylPREDNISolone NA SUCC 125 MG/2 ML VIAL IVPB ONE (22:08)
[2020-12-27] MEDS ORDERED: methylPREDNISolone NA SUCC 125 MG/2 ML VIAL ONE (22:44)
[2020-12-28] MEDS ORDERED: SODIUM CHLORIDE 500 ML IV STA (00:02)
[2020-12-28] MEDS ORDERED: ACETAMINOPHEN 1000 MG/100 ML VIAL IVPB ONE (00:27)
[2020-12-28] MEDS ORDERED: ACETAMINOPHEN INJECTION 100 ML IVPB ONE (00:33)
[2020-12-28] MEDS ORDERED: AZITHROMYCIN IVPB 250 MG in DEXTROSE 5%-WATER - 250 ML IVPB ONE (00:44)
[2020-12-28] MEDS ORDERED: SODIUM CHLORIDE 1,000 ML IV SCH ×3 (00:45→02:15)
[2020-12-28] MEDS ORDERED: ALBUTEROL SO4 HFA INHALER IH ONE (00:59)
[2020-12-28 01:01] LABS: ARTERIAL BLD GAS O2 SATURATION 82.5 % (95-98); ARTERIAL BLOOD GAS BASE EXCESS 10.9 mmol/L (-2-2); ARTERIAL BLOOD GAS PO2 53.7 mmHg (80-100); ARTERIAL BLOOD GAS pH 7.299 (7.350-7.450)
[2020-12-28 01:03] LABS: ALLENS TEST POSITIVE
[2020-12-28] MEDS ORDERED: ALBUTEROL SO4 0.083% IH SOL 2.5 MG/3 ML VIAL.NEB. NEB ONE ×2 (01:06→06:07)
[2020-12-28] MEDS: ALBUTEROL SO4 0.083% IH SOL 2.5 MG/3 ML VIAL.NEB. NEB SCH ×6 (01:12→20:56)
[2020-12-28] MEDS ORDERED: ENOXAPARIN NA (PORCINE) 40 MG/0.4 ML DISP.SYRIN SQ ONE (05:59)
[2020-12-28] MEDS ORDERED: methylPREDNISolone NA SUCC 40 MG/1 ML VIAL ONE (05:59)
[2020-12-28] MEDS: methylPREDNISolone NA SUCC 40 MG/1 ML VIAL IVPB SCH ×4 (06:06→21:25)
[2020-12-28] MEDS: ENOXAPARIN NA (PORCINE) 40 MG/0.4 ML DISP.SYRIN SQ SCH ×3 (06:06→21:25)
[2020-12-28] MEDS ORDERED: PT OWN MED DRAWER 7, Y5N ONE ×2 (10:47→13:29)
[2020-12-28] MEDS: ASPIRIN 81 MG CHEWABLE TABLETS PO SCH (10:53)
[2020-12-28] MEDS: CLOPIDOGREL BISULFATE 75 MG TABLET (FP) PO SCH (10:54)
[2020-12-28 13:20] VITALS: BMI 55.7
[2020-12-28] MEDS: CLOTRIMAZOLE 1% CREAM TP SCH ×2 (13:32→22:30)
[2020-12-28] MEDS: AZITHROMYCIN IVPB 250 MG in DEXTROSE 5%-WATER - 250 ML IVPB SCH (13:32)
[2020-12-28] MEDS: VITAMIN B COMPLEX W/C COMBO TABLET (FP) PO SCH (13:32)
[2020-12-28] MEDS: ROSUVASTATIN CA 20 MG TABLET (FP) PO SCH (21:25)
[2020-12-28] MEDS: CARVEDILOL 12.5 MG TABLET (FP) PO SCH (22:30)
[2020-12-29] MEDS: methylPREDNISolone NA SUCC 40 MG/1 ML VIAL IVPB SCH ×4 (03:00→21:09)
[2020-12-29] MEDS: ALBUTEROL SO4 0.083% IH SOL 2.5 MG/3 ML VIAL.NEB. NEB SCH ×6 (04:00→20:10)
[2020-12-29 07:08] LABS: HEMATOCRIT 34.1 % (32.4-45.2); MCH 31.7 pg (25.7-33.7); MCHC 32.4 g/dl (32.0-36.0); MEAN CELL VOLUME 97.8 fl (80-96); PLATELET COUNT 199 10^3/uL (134-434); RBC 3.49 M/mm3 (3.60-5.2); RDW 13.8 % (11.6-15.6); WHITE BLOOD COUNT 9.8 K/mm3 (4.0-10.0)
[2020-12-29 07:58] LABS: BLOOD UREA NITROGEN 18.7 mg/dL (7-18); CALCIUM 8.9 mg/dL (8.5-10.1)
[2020-12-29 07:59] LABS: CREATININE 0.5 mg/dL (0.55-1.3)
[2020-12-29 08:05] LABS: PHOSPHOROUS 2.4 mg/dL (2.5-4.9)
[2020-12-29] MEDS: CLOTRIMAZOLE 1% CREAM TP SCH ×2 (10:36→21:13)
[2020-12-29] MEDS: ENOXAPARIN NA (PORCINE) 40 MG/0.4 ML DISP.SYRIN SQ SCH ×2 (10:49→21:10)
[2020-12-29] MEDS: FUROSEMIDE 40 MG TABLET (FP) PO SCH (10:50)
[2020-12-29] MEDS: ASPIRIN 81 MG CHEWABLE TABLETS PO SCH (10:50)
[2020-12-29] MEDS: CLOPIDOGREL BISULFATE 75 MG TABLET (FP) PO SCH (10:50)
[2020-12-29] MEDS: EZETIMIBE 10 MG TABLET (FP) PO SCH (10:50)
[2020-12-29] MEDS: SPIRONOLACTONE 25 MG TABLET PO SCH (10:50)
[2020-12-29] MEDS: VITAMIN B COMPLEX W/C COMBO TABLET (FP) PO SCH (10:50)
[2020-12-29] MEDS: CARVEDILOL 12.5 MG TABLET (FP) PO SCH ×2 (10:51→21:14)
[2020-12-29] MEDS: AZITHROMYCIN IVPB 250 MG in DEXTROSE 5%-WATER - 250 ML IVPB SCH (10:51)
[2020-12-29] MEDS ORDERED: FLU VACC QS2021-22(6MOS UP)/PF 60 MCG/0.5 ML SYRINGE IM ONE (11:30)
[2020-12-29] MEDS: ROSUVASTATIN CA 20 MG TABLET (FP) PO SCH (21:10)
[2020-12-30] MEDS: ALBUTEROL SO4 0.083% IH SOL 2.5 MG/3 ML VIAL.NEB. NEB SCH ×6 (00:05→20:15)
[2020-12-30] MEDS: methylPREDNISolone NA SUCC 40 MG/1 ML VIAL IVPB SCH ×4 (03:25→21:17)
[2020-12-30] MEDS ORDERED: PT OWN MED DRAWER 7, Y5N ONE ×2 (10:22→20:47)
[2020-12-30] MEDS: AZITHROMYCIN IVPB 250 MG in DEXTROSE 5%-WATER - 250 ML IVPB SCH (10:28)
[2020-12-30] MEDS: CLOPIDOGREL BISULFATE 75 MG TABLET (FP) PO SCH (10:28)
[2020-12-30] MEDS: SPIRONOLACTONE 25 MG TABLET PO SCH (10:28)
[2020-12-30] MEDS: ASPIRIN 81 MG CHEWABLE TABLETS PO SCH (10:28)
[2020-12-30] MEDS: VITAMIN B COMPLEX W/C COMBO TABLET (FP) PO SCH (10:28)
[2020-12-30] MEDS: FUROSEMIDE 40 MG TABLET (FP) PO SCH (10:28)
[2020-12-30] MEDS: EZETIMIBE 10 MG TABLET (FP) PO SCH (10:28)
[2020-12-30] MEDS: CARVEDILOL 12.5 MG TABLET (FP) PO SCH ×2 (10:28→21:18)
[2020-12-30] MEDS: CLOTRIMAZOLE 1% CREAM TP SCH ×2 (10:29→21:18)
[2020-12-30] MEDS: ENOXAPARIN NA (PORCINE) 40 MG/0.4 ML DISP.SYRIN SQ SCH ×2 (10:29→21:36)
[2020-12-30] MEDS: ROSUVASTATIN CA 20 MG TABLET (FP) PO SCH (21:18)
[2020-12-31] MEDS: ALBUTEROL SO4 0.083% IH SOL 2.5 MG/3 ML VIAL.NEB. NEB SCH ×6 (00:20→20:27)
[2020-12-31] MEDS: methylPREDNISolone NA SUCC 40 MG/1 ML VIAL IVPB SCH ×3 (02:20→17:36)
[2020-12-31 08:35] LABS: HEMATOCRIT 33.8 % (32.4-45.2); HEMOGLOBIN 11.1 GM/dL (10.7-15.3); MCH 31.8 pg (25.7-33.7); MEAN CELL VOLUME 96.6 fl (80-96); MEAN PLT VOLUME 8.7 fl (7.5-11.1); PLATELET COUNT 216 10^3/uL (134-434); RDW 13.7 % (11.6-15.6); WHITE BLOOD COUNT 9.4 K/mm3 (4.0-10.0)
[2020-12-31 08:58] LABS: BLOOD UREA NITROGEN 31.7 mg/dL (7-18); CALCIUM 8.8 mg/dL (8.5-10.1)
[2020-12-31 09:01] LABS: CREATININE 0.7 mg/dL (0.55-1.3)
[2020-12-31 09:03] LABS: BILIRUBIN,TOTAL 0.6 mg/dL (0.2-1)
[2020-12-31 10:15] LABS: ANISOCYTOSIS 1+; MACROCYTOSIS 0; OVALOCYTE 1+; PLATELET ESTIMATE NORMAL
[2020-12-31] MEDS: CLOPIDOGREL BISULFATE 75 MG TABLET (FP) PO SCH (10:21)
[2020-12-31] MEDS: FUROSEMIDE 40 MG TABLET (FP) PO SCH (10:21)
[2020-12-31] MEDS: ENOXAPARIN NA (PORCINE) 40 MG/0.4 ML DISP.SYRIN SQ SCH (10:21)
[2020-12-31] MEDS: SPIRONOLACTONE 25 MG TABLET PO SCH (10:21)
[2020-12-31] MEDS: CARVEDILOL 12.5 MG TABLET (FP) PO SCH ×2 (10:21→21:31)
[2020-12-31] MEDS: CLOTRIMAZOLE 1% CREAM TP SCH ×2 (10:21→21:31)
[2020-12-31] MEDS: VITAMIN B COMPLEX W/C COMBO TABLET (FP) PO SCH (10:21)
[2020-12-31] MEDS: EZETIMIBE 10 MG TABLET (FP) PO SCH (10:21)
[2020-12-31] MEDS: ASPIRIN 81 MG CHEWABLE TABLETS PO SCH (10:21)
[2020-12-31] MEDS ORDERED: SODIUM CHLORIDE NASAL SPRAY 44 ML BOTTLE NS PRN (10:44)
[2020-12-31] MEDS: ROSUVASTATIN CA 20 MG TABLET (FP) PO SCH (21:31)
[2021-01-01] MEDS: clonazePAM 0.5 MG TABLET PO PRN ×2 (00:06→23:35)
[2021-01-01] MEDS: ALBUTEROL SO4 0.083% IH SOL 2.5 MG/3 ML VIAL.NEB. NEB SCH ×3 (00:13→07:27)
[2021-01-01] MEDS: methylPREDNISolone NA SUCC 40 MG/1 ML VIAL IVPB SCH ×3 (01:39→17:06)
[2021-01-01] MEDS ORDERED: PT OWN MED DRAWER 7, Y5N ONE (09:35)
[2021-01-01] MEDS: ASPIRIN 81 MG CHEWABLE TABLETS PO SCH (09:42)
[2021-01-01] MEDS: FUROSEMIDE 40 MG TABLET (FP) PO SCH (09:42)
[2021-01-01] MEDS: CLOPIDOGREL BISULFATE 75 MG TABLET (FP) PO SCH (09:42)
[2021-01-01] MEDS: EZETIMIBE 10 MG TABLET (FP) PO SCH (09:42)
[2021-01-01] MEDS: SPIRONOLACTONE 25 MG TABLET PO SCH (09:42)
[2021-01-01] MEDS: CARVEDILOL 12.5 MG TABLET (FP) PO SCH ×2 (09:43→21:55)
[2021-01-01] MEDS: VITAMIN B COMPLEX W/C COMBO TABLET (FP) PO SCH (09:43)
[2021-01-01] MEDS: ENOXAPARIN NA (PORCINE) 40 MG/0.4 ML DISP.SYRIN SQ SCH (09:52)
[2021-01-01] MEDS: CLOTRIMAZOLE 1% CREAM TP SCH ×2 (09:53→21:56)
[2021-01-01] MEDS ORDERED: ALBUTEROL SO4 0.083% IH SOL 2.5 MG/3 ML VIAL.NEB. NEB PRN (10:34)
[2021-01-01] MEDS: ALBUTEROL SO4 2.5/IPRATROPIUM 0.5 INH SOL 3 ML VIAL.NEB. NEB SCH ×3 (11:04→20:02)
[2021-01-01] MEDS: ROSUVASTATIN CA 20 MG TABLET (FP) PO SCH (21:55)
[2021-01-02] MEDS: methylPREDNISolone NA SUCC 40 MG/1 ML VIAL IVPB SCH ×3 (02:06→17:49)
[2021-01-02] MEDS: ALBUTEROL SO4 2.5/IPRATROPIUM 0.5 INH SOL 3 ML VIAL.NEB. NEB SCH (07:33)
[2021-01-02] MEDS ORDERED: PT OWN MED DRAWER 7, Y5N ONE (09:38)
[2021-01-02] MEDS: SPIRONOLACTONE 25 MG TABLET PO SCH (09:44)
[2021-01-02] MEDS: CLOPIDOGREL BISULFATE 75 MG TABLET (FP) PO SCH (09:44)
[2021-01-02] MEDS: ASPIRIN 81 MG CHEWABLE TABLETS PO SCH (09:44)
[2021-01-02] MEDS: EZETIMIBE 10 MG TABLET (FP) PO SCH (09:44)
[2021-01-02] MEDS: CARVEDILOL 12.5 MG TABLET (FP) PO SCH ×2 (09:44→22:28)
[2021-01-02] MEDS: VITAMIN B COMPLEX W/C COMBO TABLET (FP) PO SCH (09:44)
[2021-01-02] MEDS: FLUTICASONE/UMECLIDIN/VILANTER(200-62.5-25 TRELEGY ELLIPTA) INAHLER IH SCH (09:45)
[2021-01-02] MEDS: FUROSEMIDE 40 MG TABLET (FP) PO SCH (09:45)
[2021-01-02] MEDS: ENOXAPARIN NA (PORCINE) 40 MG/0.4 ML DISP.SYRIN SQ SCH (09:45)
[2021-01-02] MEDS: CLOTRIMAZOLE 1% CREAM TP SCH ×2 (09:46→22:28)
[2021-01-02] MEDS: ALBUTEROL SO4 0.083% IH SOL 2.5 MG/3 ML VIAL.NEB. NEB SCH ×2 (12:20→20:23)
[2021-01-02] MEDS: ROSUVASTATIN CA 20 MG TABLET (FP) PO SCH (22:28)
[2021-01-02] MEDS: clonazePAM 0.5 MG TABLET PO PRN (23:26)
[2021-01-02] MEDS: ACETAMINOPHEN 500 MG TABLET (FP) PO PRN (23:26)
[2021-01-03] MEDS: methylPREDNISolone NA SUCC 40 MG/1 ML VIAL IVPB SCH (02:03)
[2021-01-03] MEDS: ACETAMINOPHEN 500 MG TABLET (FP) PO PRN ×2 (06:29→21:46)
[2021-01-03] MEDS: ALBUTEROL SO4 0.083% IH SOL 2.5 MG/3 ML VIAL.NEB. NEB SCH ×3 (07:35→20:15)
[2021-01-03] MEDS ORDERED: FLU VACC QS2021-22(6MOS UP)/PF 60 MCG/0.5 ML SYRINGE IM ONE (10:00)
[2021-01-03] MEDS ORDERED: PT OWN MED DRAWER 7, Y5N ONE (10:27)
[2021-01-03] MEDS: ENOXAPARIN NA (PORCINE) 40 MG/0.4 ML DISP.SYRIN SQ SCH (10:29)
[2021-01-03] MEDS: ASPIRIN 81 MG CHEWABLE TABLETS PO SCH (10:29)
[2021-01-03] MEDS: FUROSEMIDE 40 MG TABLET (FP) PO SCH (10:30)
[2021-01-03] MEDS: VITAMIN B COMPLEX W/C COMBO TABLET (FP) PO SCH (10:30)
[2021-01-03] MEDS: CARVEDILOL 12.5 MG TABLET (FP) PO SCH ×2 (10:30→21:46)
[2021-01-03] MEDS: methylPREDNISolone NA SUCC 40 MG/1 ML VIAL IVPUSH SCH (10:30)
[2021-01-03] MEDS: CLOPIDOGREL BISULFATE 75 MG TABLET (FP) PO SCH (10:30)
[2021-01-03] MEDS: SPIRONOLACTONE 25 MG TABLET PO SCH (10:30)
[2021-01-03] MEDS: EZETIMIBE 10 MG TABLET (FP) PO SCH (10:30)
[2021-01-03] MEDS: FLUTICASONE/UMECLIDIN/VILANTER(200-62.5-25 TRELEGY ELLIPTA) INAHLER IH SCH (10:31)
[2021-01-03] MEDS: CLOTRIMAZOLE 1% CREAM TP SCH ×2 (10:32→21:48)
[2021-01-03] MEDS: ROSUVASTATIN CA 20 MG TABLET (FP) PO SCH (21:46)
[2021-01-03] MEDS: clonazePAM 0.5 MG TABLET PO PRN (23:44)
[2021-01-04] MEDS ORDERED: PT OWN MED DRAWER 7, Y5N ONE (09:49)
[2021-01-04] MEDS: SPIRONOLACTONE 25 MG TABLET PO SCH (10:05)
[2021-01-04] MEDS: ASPIRIN 81 MG CHEWABLE TABLETS PO SCH (10:05)
[2021-01-04] MEDS: ACETAMINOPHEN 500 MG TABLET (FP) PO PRN (10:05)
[2021-01-04] MEDS: EZETIMIBE 10 MG TABLET (FP) PO SCH (10:06)
[2021-01-04] MEDS: VITAMIN B COMPLEX W/C COMBO TABLET (FP) PO SCH (10:06)
[2021-01-04] MEDS: CLOPIDOGREL BISULFATE 75 MG TABLET (FP) PO SCH (10:06)
[2021-01-04] MEDS: FUROSEMIDE 40 MG TABLET (FP) PO SCH (10:06)
[2021-01-04] MEDS: CLOTRIMAZOLE 1% CREAM TP SCH ×2 (10:06→21:56)
[2021-01-04] MEDS: CARVEDILOL 12.5 MG TABLET (FP) PO SCH ×2 (10:06→21:55)
[2021-01-04] MEDS: ENOXAPARIN NA (PORCINE) 40 MG/0.4 ML DISP.SYRIN SQ SCH (10:41)
[2021-01-04] MEDS: ALBUTEROL SO4 0.083% IH SOL 2.5 MG/3 ML VIAL.NEB. NEB SCH ×3 (11:18→20:55)
[2021-01-04] MEDS: NYSTATIN 500,000 UNITS/5 ML SUSPENSION PO SCH ×2 (13:55→18:44)
[2021-01-04] MEDS: FLUTICASONE/UMECLIDIN/VILANTER(200-62.5-25 TRELEGY ELLIPTA) INAHLER IH SCH (13:56)
[2021-01-04] MEDS: methylPREDNISolone NA SUCC 40 MG/1 ML VIAL IVPUSH SCH (13:56)
[2021-01-04] MEDS: ROSUVASTATIN CA 20 MG TABLET (FP) PO SCH (21:55)
[2021-01-05] MEDS: NYSTATIN 500,000 UNITS/5 ML SUSPENSION PO SCH ×2 (00:59→06:37)
[2021-01-05] MEDS: ACETAMINOPHEN 500 MG TABLET (FP) PO PRN (00:59)
[2021-01-05] MEDS: ALBUTEROL SO4 0.083% IH SOL 2.5 MG/3 ML VIAL.NEB. NEB SCH ×2 (07:50→13:44)
[2021-01-05 09:37] VITALS: BP 119/69; PULSE 92; TEMP 97.8
[2021-01-05] MEDS: methylPREDNISolone NA SUCC 40 MG/1 ML VIAL IVPUSH SCH (10:34)
[2021-01-05] MEDS: ENOXAPARIN NA (PORCINE) 40 MG/0.4 ML DISP.SYRIN SQ SCH (10:42)
[2021-01-05] MEDS: CLOPIDOGREL BISULFATE 75 MG TABLET (FP) PO SCH (10:49)
[2021-01-05] MEDS: CARVEDILOL 12.5 MG TABLET (FP) PO SCH (10:49)
[2021-01-05] MEDS: FUROSEMIDE 40 MG TABLET (FP) PO SCH (10:50)
[2021-01-05] MEDS: ASPIRIN 81 MG CHEWABLE TABLETS PO SCH (10:50)
[2021-01-05] MEDS: EZETIMIBE 10 MG TABLET (FP) PO SCH (10:50)
[2021-01-05] MEDS: VITAMIN B COMPLEX W/C COMBO TABLET (FP) PO SCH (10:51)
[2021-01-05] MEDS: SPIRONOLACTONE 25 MG TABLET PO SCH (11:54)
[2021-01-05] MEDS: FLUTICASONE/UMECLIDIN/VILANTER(200-62.5-25 TRELEGY ELLIPTA) INAHLER IH SCH (11:54)
[2021-01-05] MEDS: CLOTRIMAZOLE 1% CREAM TP SCH (11:54)
== END 2021-01-05 14:32 | disposition home or self-care (01) | DRG 189 ==
LOC: JER 18:02 → JERBED 12-28 00:03 → J8W 12-28 09:21
PROVIDERS: ADMIT Internal Medicine; ATTEND Internal Medicine
DX: J96.21 Acute and chronic respiratory failure with hypoxia (principal); J44.1 Chronic obstructive pulmonary disease with (acute) exacerbation; E87.2 Acidosis; J98.11 Atelectasis; E66.2 Morbid (severe) obesity with alveolar hypoventilation; Z68.43 Body mass index [BMI] 50.0-59.9, adult; J96.22 Acute and chronic respiratory failure with hypercapnia; Z99.81 Dependence on supplemental oxygen; I25.10 Atherosclerotic heart disease of native coronary artery without angina pectoris; I10 Essential (primary) hypertension; E78.5 Hyperlipidemia, unspecified; I25.5 Ischemic cardiomyopathy; Z88.0 Allergy status to penicillin; I95.9 Hypotension, unspecified; R21 Rash and other nonspecific skin eruption
CPT/HCPCS: 36415; 36600; 71045-TC-FY; 80048; 80053; 81003; 82550; 82803; 83735; 84100; 84484; 85025; 85027; 90686; 93005; 93010; 94640; 94660; 97116-GP; 97161-GP; 99285-25; C9803; G0008; J0131; U0003; U0005